=== PATIENT | female | born 1985 | race Caucasian/White ===

== ENCOUNTER 2018-06-11 12:32 | Emergency (ER) | payer OTHER ==
[~2018-06-11] VITALS: Ht 165.1 cm; Wt 59.0 kg
== END 2018-06-11 14:31 | disposition home or self-care (01) ==
LOC: ER 12:32
DX: J32.8 Other chronic sinusitis (principal)

== ENCOUNTER 2023-08-07 14:15 | Inpatient (IN) | payer OTHER ==
[~2023-08-07] VITALS: Ht 160 cm; Wt 81.2 kg
[2023-08-25 13:41] LABS: HEMATOCRIT 42.9 % (36.0-45.00); HEMOGLOBIN 14.9 g/dL (12.0-15.00); MEAN CELL VOLUME 91.2 fL (80.00-100.00); MEAN CORPUSCULAR HEMOGLOBIN 31.7 pg (27.00-32.0); MEAN CORPUSCULAR HGB CONC 34.7 g/dl (32.0-36.0); PLATELET COUNT 199 K/uL (150-450); RED CELL DISTRIBUTION WIDTH 13.8 % (11.5-14.5)
[2023-08-25 13:47] LABS: INR 0.96; PARTIAL THROMBOPLASTIN TIME 26.6 SECONDS (22.0-34.0); PROTHROMBIN TIME 10.1 SECONDS (9.0-11.5)
[2023-08-25] MEDS ORDERED: PRENATABS RX T1 EACH PO (13:47)
[2023-08-25 14:29] LABS: ALBUMIN 2.9 gm/dL (3.4-5.0); BILIRUBIN TOTAL 0.54 mg/dL (0.3-1.2); CALCIUM 9.5 mg/dL (8.5-10.1); CREATININE SERUM 0.58 mg/dL (0.55-1.02); GFR 116.34; GLOBULINA 3.5 G/DL (2.4-3.5); POTASSIUM 4.33 mEq/L (3.5-5.1); TOTAL PROTEIN 6.4 gm/dL (6.4-8.2)
[2023-08-25] MEDS ORDERED: ERYTHROMYCIN BASE 1 GM TUBE OP ONE (16:54)
[2023-08-25] MEDS ORDERED: CHLORHEXIDINE GLUCONATE 120 ML BOTTLE TOP ONE (16:54)
[2023-08-25] MEDS ORDERED: CHLORHEXIDINE GLUCONATE 120 ML BOTTLE TP SCH (17:30)
[2023-08-25] MEDS ORDERED: LIDOCAINE HCL 1% 200MG/20ML VIAL IJ SCH (17:30)
[2023-08-25] MEDS ORDERED: ERYTHROMYCIN BASE 1 GM TUBE OP SCH (17:30)
[2023-08-25] MEDS ORDERED: OXYTOCIN 1,000 ML IV ONE (17:30)
[2023-08-25] MEDS ORDERED: OXYTOCIN 500 ML IV SCH (18:30)
[2023-08-25] MEDS ORDERED: SENNA/DOCUSATE SODIUM 1 TAB TABLET PO SCH (21:00)
[2023-08-25] MEDS ORDERED: IBUprofen 600 MG TABLET PO PRN (22:45)
[2023-08-26 06:49] LABS: HEMATOCRIT 38.7 % (36.0-45.00); HEMOGLOBIN 13.4 g/dL (12.0-15.00); MEAN CELL VOLUME 91.1 fL (80.00-100.00); MEAN CORPUSCULAR HEMOGLOBIN 31.5 pg (27.00-32.0); MEAN CORPUSCULAR HGB CONC 34.6 g/dl (32.0-36.0); PLATELET COUNT 175 K/uL (150-450); RED BLOOD COUNT 4.25 M/uL (4.00-6.00)
[2023-08-26] MEDS ORDERED: PNV,CALCIUM 72/IRON/FOLIC ACID 1 TAB TABLET PO SCH (09:00)
[2023-08-27] MEDS ORDERED: FF) RHO(D) IMMUNE GLOBULIN (POM) IM ONE (09:15)
== END 2023-08-27 13:11 | disposition home or self-care (01) | DRG 807 ==
LOC: LDR 08-25 13:13 → OB/GYN 08-25 21:14
PROVIDERS: Obstetrics & Gynecology Gynecology; ADMIT Obstetrics & Gynecology; ATTEND Obstetrics & Gynecology
PROC: 10E0XZZ Delivery of Products of Conception, External Approach (ICD-10-PCS; principal; 2023-08-25)
PROC: 0KQM0ZZ Repair Perineum Muscle, Open Approach (ICD-10-PCS; 2023-08-25)
PROC: 4A1HXCZ Monitoring of Products of Conception, Cardiac Rate, External Approach (ICD-10-PCS; 2023-08-25)
DX: O70.1 Second degree perineal laceration during delivery (principal); Z37.0 Single live birth; Z3A.39 39 weeks gestation of pregnancy; Z20.822 Contact with and (suspected) exposure to COVID-19

== ENCOUNTER 2023-08-22 11:27 | Outpatient (CLI) | payer OTHER | END 2023-08-22 12:12 | disposition home or self-care (01) | LOC: NST 11:27 | PROVIDERS: ATTEND Obstetrics & Gynecology | DX: Z34.83 Encounter for supervision of other normal pregnancy, third trimester (principal) ==